=== PATIENT | male | born 1965 | race African-American/Black ===

== ENCOUNTER 2017-05-18 17:31 | Emergency (ER) | payer MEDICARE, OTHER ==
[~2017-05-18] VITALS: Ht 182.9 cm; Wt 59.0 kg
--- NOTE | ~2017-05-18 | EKG ---
PATIENT: MARGARET MCALLISTER UNIT #: [id number] Ventricular Rate: 69 BPM Atrial Rate: 69 BPM P-R Interval: 158 ms QRS Duration: 88 ms Q-T Interval: 478 ms QTC Calculation(Bezet): 512 ms P [place]: 69 degrees Calculated R [place]: -61 degrees Calculated T [place]: 118 degrees Diagnosis Line: Normal sinus rhythm Diagnosis Line: Left anterior fascicular block Diagnosis Line: Voltage criteria for left ventricular hypertrophy Diagnosis Line: Anteroseptal infarct (cited on or before Diagnosis Line: 18-MAY-2017) Diagnosis Line: ST and T wave abnormality, consider lateral ischemia Diagnosis Line: Prolonged QT Diagnosis Line: Abnormal ECG Diagnosis Line: When compared with ECG of 21-APR-2016 10:47, Diagnosis Line: Serial changes of Anteroseptal infarct Present Diagnosis Line: Confirmed by SHAHBAZ MENDIOLA MD ([id number]) on 05/20/2017 Diagnosis Line: 1:59:35 PM INTERPRETING MD: MAURY CHAVARRIA
--- NOTE | ~2017-05-18 | CR72 ---
[facility] A Service of [facility] RADIOLOGY TEXT RESULTS PATIENT: MARGARET MCALLISTER LOCATION: [facility] : 65 UNIT #: [id number] AGE: [address]: Dalton Pace MD SEX: M ORDER DR: [id number] [facility]. [place], [place] [address] [id number] MR#: [id number] Acc #: [id number] NAME: MARGARET MCALLISTER. : 1965 SEX: M STUDY DATE/TIME: 05/18/2017 18:11 UNIT: YULI ROOM: STUDY DESCRIPTION: CR Chest Single View Portable Attending Physician: Dalton Pace M.D. Ordering Physician: Dalton Pace M.D. Primary Care Physician: Primary Care Physician No MEDICAL IMAGING REPORT This report is preliminary unless electronic signature is present EXAM Frontal chest 05/18/2017 INDICATION Chest pain, hypertension in a 52-year-old male. Symptoms began today. C-spine surgery in March of this year. Dialysis patient. TECHNIQUE Frontal chest compared with 04/06/2017. FINDINGS Cardiac silhouette is stable. The aorta is tortuous. No distinct evidence of volume overload. No effusion, dense consolidation or pneumothorax. There is some probable scarring in the midlung zones bilaterally. IMPRESSION Negative frontal chest for active disease. Granulomatous calcifications. Postop changes. Dictated by... Shahbaz Carpio M.D. THIS IS AN ELECTRONICALLY VERIFIED REPORT Shahbaz Carpio M.D. at 05/19/2017 11:30 PM ARIEL/valente TD: 05/19/2017 09:34 JOB #: [id number] MEDICAL IMAGING REPORT [facility] A Service [facility] RADIOLOGY TEXT RESULTS PATIENT: MARGARET MACLLISTER LOCATION: [facility] : 65 UNIT #: [id number] AGE: [address]: Dalton Pace MD SEX: M ORDER DR: Page 1 of 1 COPY
[~2017-05-18 17:31] MED LIST: ACETAMINOPHEN PO; ALDACTONE PO; ALLERGY25 MG PO; APRESOLINE; APRESOLINE PO; ASPIR-TRIN325 MG PO; ASPIRIN PO; AZITHROMYCIN250 MG PO; BACTRIM DS TABL1 TA1 PO; BACTROBAN15 GM TOP; BACTROBAN22 GM TP; BENADRYL25 MG PO; BENICAR PO; CALCIUM ACETAT667 MG PO; CARDIZEM SR PO; CHRONULAC10 GM/15 M PO; CLONIDINE HCL0.1 MG; CLONIDINE HCL0.1 MG PO; CLONIDINE PO; COLACE PO; COREG PO; COREG12.5 MG PO; DAKIN'S MODIF1000 ML TOP; DIFLUCAN PO; DILTIAZEM ER120 M1 PO; DILTIAZEM ER240 M1 PO; DILTIAZEM ER90 MG; DSS100 MG PO; EDURANT25 MG PO; EMTRIVA PO; EMTRIVA200 MG PO; FLEXERIL10 MG PO; HEPARIN1000 UNIT/ IV; HYDRALAZINE HC100 MG PO; HYDROCODONE-APA1 T43 PO; ISENTRESS400 MG PO; KETOPROFEN PO; LACTULOSE10 G/15 M1 PO; LACTULOSE10 G/15 ML; LACTULOSE10 G/15 ML PO; LISINOPRIL PO; LISINOPRIL20 MG PO; LOPRESSOR PO; LORTAB 5/500 TA1 TA1 PO; MILK OF MAGNESIA PO; NEPHROCAPS CAPSU1 MG; NEPHROCAPS CAPSU1 MG PO; NILSTAT PO; NORCO 7.5-3251 EACH PO; NORMODYNE PO; NORVIR100 MG PO; OMEPRAZOLE40 M1; PATIENT'S PHARMACY; PHENERGAN PO; PHENERGAN SUPP25 MG; PHENERGAN SUPP25 MG PR; PHENERGAN25 MG PO; PHOSLO PO; PHOSLO667 M1 PO; PHOSLO667 MG; PHOSLO667 MG PO; PREDNISONE PO; PREDNISONE50 MG PO; PREZISTA600 MG PO; PROTONIX PO; RENAGEL400 MG PO; RENAGEL403 MG PO; RENAPLEX PO; SANTYL15 G1 TOP; TIVICAY50 MG PO; TOPROL XL PO; TRAMADOL HCL50 M1 PO; TYLENOL #3 PO; TYLOX1 CAP 5/50 DOB; TYLOX1 CAP 5/50 PO; VASOTEC PO; VICODIN 5/1 TAB 5/50 PO; VIRAMUNE200 MG PO; VIT B-12 PO; VITAMIN D50000 UNIT PO; ZERIT PO; [UNRECOGNIZED DRUG - OTHER] PO; [UNRECOGNIZED DRUG - REMARK] PO
[2017-05-18 18:31] LABS: POC - CKMB <1.0 ng/mL (0.0-7.9); POC - TROPONIN <0.05 ng/mL (<=0.05)
[2017-05-18 19:06] LABS: BASOPHIL% 0.5 % (0-2.5); DIFF IND NO; EOSINOPHIL# 0.1 X10e3 (0-0.7); EOSINOPHIL% 1.5 % (0.0-7.0); HEMATOCRIT 37.8 % (38.0-50.0); HEMOGLOBIN 12.4 gm/dL (13.0-16.0); LYMPHOCYTE# 2.1 X10e3 (1.0-3.5); LYMPHOCYTE% 36.2 % (17.0-45.0); MEAN CELL VOLUME 96.4 FL (83-96); MEAN CORPUSCULAR HEMOGLOBIN 31.6 PG (28-34); MEAN CORPUSCULAR HGB CONC 32.7 g/dL (30-36); MEAN PLATELET VOLUME 8.9 FL (6.5-11.5); MONOCYTE# 0.7 X10e3 (0-1.0); MONOCYTE% 11.8 % (3.0-12.0); NEUTROPHIL# 2.9 X10e3 (1.5-7.1); PLATELET COUNT 212 X10e3 (140-420); RED BLOOD COUNT 3.92 X10e (3.90-5.60); RED CELL DISTRIBUTION WIDTH 16.8 % (11.0-15.5); WHITE BLOOD COUNT 5.9 X10e3 (4.0-10.5)
[2017-05-18 19:28] LABS: ALBUMIN SERUM 3.6 g/dL (3.5-5.0); BILIRUBIN, DIRECT 0.2 mg/dL (0.0-0.2); BILIRUBIN,INDIRECT 0.5 mg/dL (0.0-0.9); BILIRUBIN,TOTAL 0.7 mg/dL (0.2-2.0); BUN/CREATININE RATIO 2.5; CALCIUM SERUM 8.6 mg/dL (8.4-10.2); CREATININE SERUM 4.4 mg/dL (0.6-1.4); GLOM FILT RATE Estimated 16.7 mL/min (>60); POTASSIUM 3.7 mmol/L (3.5-5.1); PROTEIN TOTAL SERUM 7.9 g/dL (6.0-8.3)
[2017-05-18 21:57] LABS: POC - CKMB <1.0 ng/mL (0.0-7.9); POC - TROPONIN <0.05 ng/mL (<=0.05)
== END 2017-05-18 22:15 | disposition home or self-care (01) ==
LOC: CED 17:31
PROVIDERS: Emergency Medicine
DX: R07.89 Other chest pain (principal); I12.0 Hypertensive chronic kidney disease with stage 5 chronic kidney disease or end stage renal disease; N18.6 End stage renal disease; F17.210 Nicotine dependence, cigarettes, uncomplicated; Z90.49 Acquired absence of other specified parts of digestive tract; Z79.899 Other long term (current) drug therapy; Z88.1 Allergy status to other antibiotic agents; Z88.8 Allergy status to other drugs, medicaments and biological substances
CPT/HCPCS: 36415; 71010; 80048; 80076; 82553; 84484; 85025; 93005; 99285